=== PATIENT | male | born 1995 | race Caucasian/White ===

== ENCOUNTER 2018-01-21 18:35 | Emergency (ER) | payer BC, OTHER ==
[2018-01-21 18:41] VITALS: BP 131/78; PULSE 87; TEMP 98.1; BMI 21.4
[2018-01-21] MEDS ORDERED: KETOROLAC TROMETHAMINE 30 MG/1 ML VIAL IM ONE (18:49)
--- NOTE | 2018-01-21 18:50 | PDOC ---
Rapid Medical Evaluation Chief Complaint: Injury Time Seen by Provider: 01/21/18 18:49 Medical Evaluation: Allergies Allergy/AdvReac Type Severity Reaction Status Date / Time No Known Allergies Allergy Verified 01/21/18 18:39 Vital Signs Temp Pulse Resp BP Pulse Ox 98.1 F 87 18 131/78 97 01/21/18 18:39 02 18:39 01/21/18 18:39 01/21/18 18:39 01/21/18 18:39 01/21/18 18:50 I have performed a brief in-person evaluation of this patient. The patient presents with a chief complaint of: atraumatic right knee pain Pertinent physical exam findings: No erythema, swelling, deformity present. I have ordered the following: Toradol, xray The patient will proceed to the ED for further evaluation. Discharge Disposition - Diagnosis Knee pain, right - Referrals - Patient Instructions - Post Discharge Activity
[2018-01-21] MEDS ORDERED: KETOROLAC TROMETHAMINE 30 MG/1 ML VIAL ONE (20:10)
--- NOTE | 2018-01-21 20:48 | PDOC ---
History of Present Illness - General Chief Complaint: Injury Stated Complaint: KNEE PAIN Time Seen by Provider: 01/21/18 18:49 History Source: Patient Exam Limitations: No Limitations - History of Present Illness Initial Comments: 01/21/18 20:44 22-year-old male presents the ED with complaints of right knee pain for the past day and a half. 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 Patient describes the pain as sharp and intermittent worsened with ambulation to the back of his knee. Patient states took nothing for the above and was brought to the ED by his older sister for evaluation. Patient denies calf pain, swelling to the area, or skin discoloration Timing/Duration: other (yesterday) Severity: mild Associated Symptoms: reports: denies symptoms Past History - Travel Traveled outside of the country in the last 30 days: No - Past Medical History Allergies/Adverse Reactions: Allergies Allergy/AdvReac Type Severity Reaction Status Date / Time No Known Allergies Allergy Verified 01/21/18 18:39 Home Medications: Ambulatory Orders NK [No Known Home Medication] 01/21/18 - Suicide/Smoking/Psychosocial Hx Smoking History: Never smoked Hx Alcohol Use: No Drug/Substance Use Hx: No Lives with/in: parents Review of Systems - Review of Systems Able to Perform ROS?: Yes Constitutional: No: Symptoms Reported Musculoskeletal: Yes: Joint Pain Integumentary: No: Symptoms Reported Neurological: No: Symptoms reported *Physical Exam - Vital Signs Last Vital Signs Temp Pulse Resp BP Pulse Ox 98.1 F 87 18 131/78 97 01/21/18 18:39 01/21/18 18:39 01/21/18 18:39 01/21/18 18:39 01/21/18 18:39 - Physical Exam General Appearance: Yes: Nourished, Appropriately Dressed. No: Apparent Distress Extremity: positive: Normal Capillary Refill, Normal Inspection, Normal Range of Motion, Tender (over distal aspect of right hamstring) Integumentary: positive: Normal Color, Warm, Moist Neurologic: positive: Motor Strength 5/5 ED Treatment Course - Medications Given in the ED: ED Medications Discontinued Medications Generic Name Dose Route Start Last Admin Trade Name Freq PRN Reason Stop Dose Admin Ketorolac Tromethamine 30 mg 01/21/18 18:49 01/21/18 20:15 Toradol Injection - IM 01/21/18 18:50 30 mg ONCE ONE Administration Medical Decision Making - Medical Decision Making 01/21/18 20:48 Patient with posterior right knee pain. Patient was ordered for an x-ray out in arm he was given a dose of Toradol which he states alleviated his pain. Patient with likely old hamstring secondary to line a work. Patient recommended not to perform aggravating movement which trigger his discomfort and to take Motrin every 6-8 hours applying ice to the affected area as much as possible for the next 2-3 days. *DC/Admit/Observation/Transfer Diagnosis at time of Disposition: Knee pain, right, Right hamstring muscle strain - Discharge Dispostion Disposition: HOME - Referrals - Patient Instructions Printed Discharge Instructions: DI for Hamstring Strain Additional Instructions: I recommended not to perform aggravating movement which trigger his discomfort and to take Motrin every 6-8 hours applying ice to the affected area as much as possible for the next 2-3 days. - Post Discharge Activity
== END 2018-01-21 20:59 | disposition home or self-care (01) ==
LOC: JERFT 18:35
PROC: 3E0233Z Introduction of Anti-inflammatory into Muscle, Percutaneous Approach (ICD-10-PCS; principal; 2018-01-21)
DX: S76.311A Strain of muscle, fascia and tendon of the posterior muscle group at thigh level, right thigh, initial encounter (principal); X50.1XXA Overexertion from prolonged static or awkward postures, initial encounter; Y93.89 Activity, other specified; Y92.511 Restaurant or cafe as the place of occurrence of the external cause; Y99.0 Civilian activity done for income or pay
CPT/HCPCS: 73562-TC-RT-FY; 99281-25

== ENCOUNTER 2019-06-28 10:55 | Emergency (ER) | payer OTHER, BC | END 2019-06-28 16:45 | disposition home or self-care (01) | LOC: JER 10:55 ==

== ENCOUNTER 2019-06-30 20:29 | Emergency (ER) | payer OTHER ==
--- NOTE | 2019-06-30 20:41 | PDOC ---
Rapid Medical Evaluation Chief Complaint: Psychiatric Time Seen by Provider: 06/30/19 20:38 Medical Evaluation: Allergies Allergy/AdvReac Type Severity Reaction Status Date / Time peach Allergy Verified 06/28/19 11:02 06/30/19 20:38 I have performed a brief in-person evaluation of this patient. The patient presents with a chief complaint of: "I had a panic attack." Pertinent physical exam findings: Lungs CTAB. RRR. No m/r/g. I have ordered the following: nothing The patient will proceed to the ED for further evaluation. Discharge Disposition - Diagnosis Panic attack - Referrals - Patient Instructions - Post Discharge Activity
[2019-06-30 20:49] VITALS: TEMP 98.9; BMI 21.0
--- NOTE | 2019-06-30 21:59 | PDOC ---
History of Present Illness - General Chief Complaint: Psychiatric Stated Complaint: ANXIETY Time Seen by Provider: 06/30/19 20:38 - History of Present Illness Initial Comments: 06/30/19 22:30 23yo M hx anxiety presents from home c/o panic attack. At 7pm today pt felt like his heart was racing, head spinning, chest tightness, SOB, and L fingers tingling. All his sx resolved when he arrived here. He had another episode at 9pm that ended at 930pm. Pt states he gets these frequently and they feel the exact same as this. Pt denies any current complaints. Denies any instigating events. Denies any current CP, SOB, F/C, N/V, numbness/tingling, weakness, abdominal pain, headache, dizziness, palpitations. Pt was seen here 2 days ago for the same sx. Pt states he improved with the medication we gave him (he is unsure if he improved with the ativan or the risperdol). Pt was seen by Dr Elke luciano and the recommendation was to go to [facility] yesterday. Pt states he did not realize he was supposed to do that. Pt went to his PCP Dr Kaplan yesterday who gave him an appointment this Saturday with a therapist Cindy Hickey. Pt does not have a psychiatrist, is not on any psych meds, and has never been hospitalized for a psych issue. Denies SI/HI. Endorses intermittent crying episodes, difficulty sleeping and staying up all night, seeing shadows, and hip hop artists speaking to him through music. Denies negative talk or hearing any voices telling him to hurt himself or others. Pt initially states he does not feel safe to go home but feels safe here. He states he feels safe with his sister but not with his brother because he's parmar and violent and doesn't understand what he's going through. Pt states he has never threatened him or hurt him. Brother is at bedside and appears caring, bringing food to pt. Pt's sister states that the brother is just parmar, but never violent or threatening. Upon revisiting subject, pt states that he does feel safe. Past History - Past Medical History Allergies/Adverse Reactions: Allergies Allergy/AdvReac Type Severity Reaction Status Date / Time peach Allergy Verified 06/30/19 20:43 Home Medications: Ambulatory Orders LORazepam [Ativan] 2 mg PO HS PRN #4 tablet MDD 1 tab 06/30/19 COPD: No Psychiatric Problems: Yes - Suicide/Smoking/Psychosocial Hx Smoking History: Never smoked Have you smoked in the past 12 months: No If you are a former smoker, when did you quit?: 4 days Information on smoking cessation initiated: No Hx Alcohol Use: No Drug/Substance Use Hx: No Review of Systems - Review of Systems Comments:: 07/01/19 03:42 Constitutional: Negative for chills, fever, fatigue. HENT: Negative for sore throat, rhinorrhea, congestion. Eyes: Negative for visual disturbance. Respiratory: Negative for shortness of breath, cough, and wheezing. Cardiovascular: Negative for chest pain, palpitations, and leg swelling. Gastrointestinal: Negative for abdominal pain, blood in stool, constipation, diarrhea, nausea, and vomiting. Genitourinary: Negative for dysuria, flank pain, and hematuria. Musculoskeletal: Negative for myalgias, back pain, and neck pain. Skin: Negative for rash. Neurological: Negative for light-headedness, dizziness, syncope, weakness, numbness and headaches. Psychiatric/Behavioral: Positive for anxiety. Negative for confusion, SI/HI. *Physical Exam - Vital Signs Last Vital Signs Temp Pulse Resp BP Pulse Ox 98.9 F 105 H 21 H 138/87 100 06/30/19 20:40 06/30/19 20:40 06/30/19 20:40 06/30/19 20:40 06/30/19 20:40 - Physical Exam Comments: 07/01/19 03:40 Gen: Alert, NAD, anxious-appearing. HEENT: PERRL, EOMI, MMM, NCAT. No conjunctival pallor. Sclera are non-icteric. Oropharynx is clear. CV: Tachycardic. Regular rhythm. No murmurs, rubs, or gallops. PULM: No resp distress. CTAB, no wheezes, rales, or rhonchi. ABD: soft, NT/ND, no rebound tenderness or guarding, no CVA tenderness. BACK: No TTP of c/t/l-spine. No step-offs or deformities. MSK: No bony deformities. 2+ pulses in all extremities. NEURO: AAOx3. PERRL. CN 2-12 intact. 5/5 strength in all extremities. Sensation to light touch intact in all extremities. No pronator drift. No dysmetria. No dysdiadochokinesia. No abnormal nystagmus. No skew deviation. Normal gait. EXTREMITIES: No cyanosis. No clubbing. No edema. No calf tenderness. PSYCH: Anxious mood. Normal thought pattern. No SI/HI. SKIN: Warm and dry. Normal capillary refill. No rashes. No jaundice. Heart Score/ECG Review - ECG Impressions Comment:: 07/01/19 00:05 Sinus tachycardia, 105 bpm, no STEs/TWIs, no significant changes from 06/28/18 Medical Decision Making - Medical Decision Making 06/30/19 22:30 23yo M hx anxiety presents from home with panic attack tonight exactly the same a previous panic attacks. Pt was seen here 2 days ago for the same sx. Pt states he improved with the medication we gave him (he is unsure if he improved with the ativan or the risperdol). Pt was seen by Dr Elke luciano and the recommendation was to go to [facility] yesterday. Pt states he did not realize he was supposed to do that. Pt went to his PCP Dr Kaplan yesterday who gave him an appointment this Saturday with a therapist Cindy Hickey. Pt does not have a psychiatrist, is not on any psych meds, and has never been hospitalized for a psych issue. Denies SI/HI. Endorses intermittent crying episodes, difficulty sleeping and staying up all night, seeing shadows, and hip hop artists speaking to him through music. Denies negative talk or hearing any voices telling him to hurt himself or others. Pt lives with sister and feels safe with her at home. Hemodynamically stable, afebrile, benign physical exam, anxious-appearing, denies any current complaints. No SI/HI concerning for emergent admission or psych consult. Pt has appt with therapist on Saturday and pt and family seem eager to go to appt and get help. Symptoms consistent with prior panic attacks - EKG to r/o arrythmia and f/u with psych outpatient. Reported staying up all night, intermittent crying, seeing shadows, and delusions of hip hop artists speaking to him through music concerning for a psychiatric illness such as bipolar disorder or schizophrenia. -EKG -Ativan for anxiety -Discussed options for [facility] mental health clinic vs [facility] ED for possible psych admission vs therapist appt on Saturday and PCP f/u. Pt would like to first go to appt on Saturday. Given information for other options if changes mind. -Dispo: reassess and likely d/c home with daughter, prescription for Ativan for 3 days, f/u with therapist at scheduled appt on Saturday and PCP EKG: Sinus tachycardia, 105 bpm, no STEs/TWIs, no significant changes from s/p Ativan, pt feels significantly better and calmer. Denies any current complaints. Pt is chatting happily with brother and sister. D/c home. Return precautions given. Pt understands all dc instructions and all questions were answered. *DC/Admit/Observation/Transfer Diagnosis at time of Disposition: Panic attack - Discharge Dispostion Disposition: HOME Condition at time of disposition: Improved Decision to Admit order: No - Prescriptions Prescriptions: LORazepam [Ativan] 2 mg PO HS PRN #4 tablet MDD 1 tab PRN Reason: Anxiety - Referrals Referrals: Paras Kaplan MD [Primary Care Provider] - - Patient Instructions Printed Discharge Instructions: DI for Panic Disorder Additional Instructions: You have been seen in the Emergency Department for your anxiety attack today. You were given a dose of Ativan with relief of your symptoms. We have prescribed you additional Ativan, enough for you to continue until you see your therapist at your scheduled appointment this Saturday. Take it as instructed on the bottle. Make sure you go to your scheduled appointment this Saturday. Follow-up with your primary care doctor Dr. Hyde within 1 week as well. You should request a referral to a psychiatrist in addition to your therapist due to the possibility of a mental health illness such as bipolar disorder or schizophrenia, that may require medications. You can also go to the [facility] Clinic at [facility] for further psychiatric evaluation if you wish. Details below. If you feel like you're having another panic attack, suicidal or homicidal thoughts, thoughts of hurting yourself, any other mental health issues, or any other new or worsening symptoms, please call 911 or return to the ED immediately. [facility] provides comprehensive outpatient psychiatric services, including individual, group and collateral therapy, for adult recipients and their families in a milieu designed to reduce symptoms, improve functioning and provide ongoing support. Treatment methods include psychotherapy and psychopharmacology. [address] [place] [address] Hours: Saturday through : 9 am to 7 pm Saturday: 9 am to 5 pm - Post Discharge Activity
[2019-06-30] MEDS ORDERED: LORazepam 1 MG TABLET PO ONE (22:23)
[2019-06-30] MEDS ORDERED: LORazepam 0.5 MG TABLET ONE (22:32)
[2019-06-30 23:38] VITALS: BP 136/84; PULSE 93
--- NOTE | 2019-06-30 23:54 | PDOC ---
Documentation entered by Eyv Rios SCRIBE, acting as scribe for Devora Loco MD. Devora Loco MD: This documentation has been prepared by the scribe, Evy Rios SCRIBE, under my direction and personally reviewed by me in its entirety. I confirm that the documentation accurately reflects all work, treatment, procedures, and medical decision making performed by me. Attending Attestation - Resident Resident Name: Ivette Fuentes - ED Attending Attestation I have performed the following: I have examined & evaluated the patient, The case was reviewed & discussed with the resident, I agree w/resident's findings & plan, Exceptions are as noted - HPI HPI: 06/30/19 22:45 The patient is a 23-year-old male, with a past medical history of anxiety, who presents to the ED with panic attack. Patient states that he suddenly began to feel extremely anxious yesterday, but was doing nothing that could have triggered symptoms. He denies any chest pain, shortness of breath, homicidal ideations, or suicidal ideations. He states that this feels like his prior panic attacks. Patient does not see a psychiatrist and does not take any medications. Allergies: Rapides PCP: Dr. Kaplan - Physicial Exam PE: 06/30/19 22:47 GENERAL: Well-appearing, well-nourished. No apparent distress. HEENT: Normocephalic, atraumatic. PERRL, EOM intact. CARDIOVASCULAR: Normal S1, S2. Regular rate and rhythm. PULMONARY: Clear to auscultation bilaterally. ABDOMEN: Soft, non-distended, non-tender. EXTREMITIES: Normal ROM in all four extremities. No gross deformities. SKIN: Warm, dry. No rash NEUROLOGICAL: No focal neurological deficits. - Medical Decision Making 06/30/19 23:30 this pt has no SI or homocidal ideation -he was seen by Dr Bedoya 2 days ago and he also saw his PCP who arranged for him to see a therapist this week Tonight he felt very anxious. He received ativan and feels much better plan d/c home (he lives with his siblings) and he will see a therapist this week
--- NOTE | 2019-07-01 08:08 | EKG ---
Test Reason : Blood Pressure : / mmHG Vent. Rate : 105 BPM Atrial Rate : 105 BPM P-R Int : 130 ms QRS Dur : 086 ms QT Int : 336 ms P-R-T Axes : 061 091 039 degrees QTc Int : 444 ms SINUS TACHYCARDIA RIGHTWARD AXIS BORDERLINE ECG WHEN COMPARED WITH ECG OF 28-JUN-2019 11:48, NO SIGNIFICANT CHANGE WAS FOUND Confirmed by TOO SCHWARTZ MD ([id number]) on 07/01/2019 8:07:39 AM Referred By: Confirmed By:TOO SCHWARTZ MD
== END 2019-06-30 23:35 | disposition home or self-care (01) ==
LOC: JER 20:29
DX: F41.0 Panic disorder [episodic paroxysmal anxiety] (principal)
CPT/HCPCS: 93005; 93010; 99283-25